=== PATIENT | male | born 1995 | race Caucasian/White ===

== ENCOUNTER 2016-10-02 18:05 | Emergency (ER) | payer MEDICAID, SELFPAY ==
[~2016-10-02] VITALS: Ht 167.6 cm; Wt 81.6 kg
[2016-10-02] MEDS ORDERED: ZOFR4TAB3 PO (19:59)
[2016-10-02] MEDS ORDERED: ONDANSETRON 4 MG ORAL DISINTEGRATING TAB (S0181) PO ONE (20:00)
[2016-10-02 20:06] VITALS: BP 138/84
== END 2016-10-02 20:06 | disposition home or self-care (01) ==
LOC: M ED 19:23
DX: K52.9 Noninfective gastroenteritis and colitis, unspecified (principal); E86.0 Dehydration; R42 Dizziness and giddiness

== ENCOUNTER 2017-12-13 04:57 | Emergency (ER) | payer BC, SELFPAY ==
[2017-12-13] MEDS: NS 1,000 ML IV ×2 (05:30→05:47)
[2017-12-13 05:39] LABS: BASO # 0.1 10^3/uL (0.0-0.2); BASO % 0.5 % (0.0-1.0); EOS # 0.2 10^3/uL (0.0-0.50); EOS % 1.3 % (0.0-3.0); HEMATOCRIT 43.6 % (42.0-52.0); HEMOGLOBIN 15.4 g/dl (13.5-17.5); IMMATURE GRANULOCYTE % 0.4 % (0-3.0); LYMPH # 1.9 10^3/uL (1.5-6.5); LYMPH % 16.1 % (24.0-44.0); MEAN CORPUSCULAR HEMOGLOBIN 32.2 pg (27.0-33.0); MEAN CORPUSCULAR HGB CONC 35.3 g/dl (32.0-36.5); MEAN CORPUSCULAR VOLUME 91.2 fl (80.0-96.0); MONO # 1.9 10^3/uL (0.0-0.8); MONO % 15.4 % (0.0-5.0); NEUTROPHILS % 66.3 % (36.0-66.0); PLATELET COUNT, AUTOMATED 213 10^3/uL (150-450); RED BLOOD COUNT 4.78 10^6/uL (4.30-6.10); WHITE BLOOD COUNT 12.1 10^3/uL (4.0-10.0)
[2017-12-13] MEDS: LORazepam 2 MG/ML VIAL (J2060) IV (05:47)
[2017-12-13 06:05] LABS: ALBUMIN 3.9 GM/DL (3.2-5.2); ALBUMIN/GLOBULIN RATIO 1.08 (1.00-1.93); ALKALINE PHOSPHATASE 65 U/L (45-117); ALT/SGPT 55 U/L (12-78); ANION GAP 13 MEQ/L (8-16); AST/SGOT 39 U/L (7-37); BILIRUBIN,DIRECT 0.3 MG/DL (0.0-0.2); BILIRUBIN,TOTAL 0.8 MG/DL (0.2-1.0); BLOOD UREA NITROGEN 7 MG/DL (7-18); CALCIUM LEVEL 8.5 MG/DL (8.5-10.1); CARBON DIOXIDE LEVEL 25 MEQ/L (21-32); CHLORIDE LEVEL 103 MEQ/L (98-107); CREATININE FOR GFR 0.89 MG/DL (0.70-1.30); GLOMERULAR FILTRATION RATE > 60.0 (>60); GLUCOSE, FASTING 127 MG/DL (70-100); LIPASE 99 U/L (73-393); POTASSIUM SERUM 3.3 MEQ/L (3.5-5.1); SODIUM LEVEL 141 MEQ/L (136-145); TOTAL PROTEIN 7.5 GM/DL (6.4-8.2)
[2017-12-13] MEDS: POTASSIUM CHLORIDE 10 MEQ SR TABLET PO (06:22)
== END 2017-12-13 07:34 | disposition home or self-care (01) ==
LOC: M ED 04:57
DX: K52.9 Noninfective gastroenteritis and colitis, unspecified (principal); E86.0 Dehydration; M43.6 Torticollis; E87.6 Hypokalemia
CPT/HCPCS: J2060

== ENCOUNTER 2017-12-17 19:47 | Emergency (ER) | payer BC ==
[2017-12-17] MEDS: FAMOTIDINE IV BAG 20 MG in APPROPRIATE DILUENT 1 EA IV (20:32)
[2017-12-17] MEDS: methylPREDNISolone INJ 125 MG/2 ML VIAL (J2930) IV (20:32)
[2017-12-17] MEDS: diphenhydrAMINE INJ 50MG/ML VIAL (J1200) IV (20:32)
== END 2017-12-17 21:38 | disposition home or self-care (01) ==
LOC: M ED 19:47
DX: L50.9 Urticaria, unspecified (principal); R51 Headache; Z72.0 Tobacco use
CPT/HCPCS: J1200

== ENCOUNTER 2017-12-23 22:13 | Emergency (ER) | payer BC ==
[2017-12-24 01:39] LABS: ALBUMIN 3.8 GM/DL (3.2-5.2); ALBUMIN/GLOBULIN RATIO 1.15 (1.00-1.93); ALKALINE PHOSPHATASE 73 U/L (45-117); ALT/SGPT 44 U/L (12-78); AST/SGOT 13 U/L (7-37); BILIRUBIN,DIRECT 0.3 MG/DL (0.0-0.2); BILIRUBIN,TOTAL 0.7 MG/DL (0.2-1.0); TOTAL PROTEIN 7.1 GM/DL (6.4-8.2)
== END 2017-12-24 01:46 | disposition home or self-care (01) ==
LOC: M ED 12-24 01:46
DX: B35.4 Tinea corporis (principal); R51 Headache; Z72.0 Tobacco use
CPT/HCPCS: 80076

== ENCOUNTER → 2018-01-13 | Outpatient (REF) | payer BC ==
[2018-01-13 12:01] LABS: HEMATOCRIT 41.4 % (42.0-52.0); HEMOGLOBIN 13.7 g/dl (13.5-17.5); MEAN CORPUSCULAR HGB CONC 33.1 g/dl (32.0-36.5); MEAN CORPUSCULAR VOLUME 96.7 fl (80.0-96.0); PLATELET COUNT, AUTOMATED 398 10^3/uL (150-450); RED BLOOD COUNT 4.28 10^6/uL (4.30-6.10); WHITE BLOOD COUNT 12.6 10^3/uL (4.0-10.0)
[2018-01-13 13:13] LABS: ALBUMIN 3.3 GM/DL (3.2-5.2); ALBUMIN/GLOBULIN RATIO 0.94 (1.00-1.93); ALKALINE PHOSPHATASE 70 U/L (45-117); ALT/SGPT 23 U/L (12-78); ANION GAP 9 MEQ/L (8-16); AST/SGOT 10 U/L (7-37); BILIRUBIN,TOTAL 0.5 MG/DL (0.2-1.0); BLOOD UREA NITROGEN 7 MG/DL (7-18); CALCIUM LEVEL 8.6 MG/DL (8.5-10.1); CARBON DIOXIDE LEVEL 28 MEQ/L (21-32); CHLORIDE LEVEL 106 MEQ/L (98-107); CREATININE FOR GFR 0.69 MG/DL (0.70-1.30); FREE T4 1.24 NG/DL (0.76-1.46); GLOMERULAR FILTRATION RATE > 60.0 (>60); GLUCOSE, FASTING 108 MG/DL (70-100); POTASSIUM SERUM 3.9 MEQ/L (3.5-5.1); SODIUM LEVEL 143 MEQ/L (136-145); TOTAL PROTEIN 6.8 GM/DL (6.4-8.2)
== END ==
LOC: M SFHCPLAZ 08:22
DX: J02.9 Acute pharyngitis, unspecified (principal); F32.9 Major depressive disorder, single episode, unspecified
CPT/HCPCS: 84443

== ENCOUNTER → 2018-01-15 | Outpatient (REF) | payer BC | LOC: M SFHCPLAZ 14:42 | DX: R19.7 Diarrhea, unspecified (principal) | CPT/HCPCS: 87507 ==

== ENCOUNTER → 2018-01-30 | Outpatient (REF) | payer BC ==
[2018-01-30 11:11] LABS: RETIC HEMOGLOBIN EQUIVALENT 35.4 pg (24-36); RETICULOCYTE # 59.8 10^9/L (17-77); RETICULOCYTE % 1.4 % (0.5-1.5)
[2018-01-30 11:35] LABS: FOLATE 10.9 NG/ML (>5.4); VITAMIN B12 LEVEL 417 PG/ML (247-911)
[2018-01-30 11:42] LABS: FERRITIN 51 NG/ML (26-388); IRON (FE) 24 UG/DL (65-175); PERCENT SATURATION 7.5 % (19.7-50.0); TOTAL IRON BINDING CAPACITY 318 UG/DL (250-450)
== END ==
LOC: M SFHCPLAZ 09:38
DX: D64.9 Anemia, unspecified (principal)

== ENCOUNTER → 2018-03-23 | Outpatient (CLI) | payer BC | LOC: M RAD 08:29 | DX: R19.7 Diarrhea, unspecified (principal) | CPT/HCPCS: 76705 ==

== ENCOUNTER 2018-03-30 10:24 | Day surgery (SDC) | payer BC ==
[2018-03-30] MEDS: NS 1,000 ML IV (06:00)
[2018-03-30] MEDS ORDERED: fentaNYL 100 MCG/2 ML INJECTION (J3010) As Ordered (12:02)
[2018-03-30] MEDS ORDERED: LIDOCAINE 2% INJ 100 MG/5 ML SDV (FOR ANES.) As Ordered (12:21)
[2018-03-30] MEDS ORDERED: PROPOFOL 500 MG/50 ML VIAL As Ordered (12:21)
== END 2018-03-30 13:07 | disposition home or self-care (01) ==
LOC: M OPP 10:24
DX: R19.7 Diarrhea, unspecified (principal); D50.9 Iron deficiency anemia, unspecified; K64.8 Other hemorrhoids; R11.2 Nausea with vomiting, unspecified; K22.8 Other specified diseases of esophagus; K29.70 Gastritis, unspecified, without bleeding; R51 Headache; F41.9 Anxiety disorder, unspecified; F17.210 Nicotine dependence, cigarettes, uncomplicated; F12.10 Cannabis abuse, uncomplicated
CPT/HCPCS: 45380

== ENCOUNTER → 2018-06-22 | Outpatient (CLI) | payer BC ==
[~2018-06-22] MED LIST: DIFL200T PO; PEPC1TAB5 PO; PRED20TA PO; ZOFR4TAB14 PO
[2018-06-22 14:43] LABS: BASO # 0.1 10^3/uL (0.0-0.2); BASO % 0.7 % (0.0-1.0); EOS # 0.3 10^3/uL (0.0-0.50); EOS % 3.1 % (0.0-3.0); HEMATOCRIT 41.6 % (42.0-52.0); HEMOGLOBIN 13.7 g/dl (13.5-17.5); LYMPH # 2.1 10^3/uL (1.5-6.5); LYMPH % 26.5 % (24.0-44.0); MEAN CORPUSCULAR HEMOGLOBIN 30.5 pg (27.0-33.0); MEAN CORPUSCULAR HGB CONC 32.9 g/dl (32.0-36.5); MEAN CORPUSCULAR VOLUME 92.7 fl (80.0-96.0); MONO # 0.8 10^3/uL (0.0-0.8); MONO % 9.4 % (0.0-5.0); NEUTROPHILS # 4.8 10^3/uL (1.8-7.7); NEUTROPHILS % 60.1 % (36.0-66.0); PLATELET COUNT, AUTOMATED 287 10^3/uL (150-450); RED BLOOD COUNT 4.49 10^6/uL (4.30-6.10)
[2018-06-22 15:09] LABS: ERYTHROCYTE SEDIMENTATION RATE 4 mm/hr (0-15)
[2018-06-22 15:16] LABS: C REACTIVE PROTEIN QUANTITATIV < 0.30 MG/DL (0.00-0.30); FERRITIN 35 NG/ML (26-388); IRON (FE) 86 UG/DL (65-175); PERCENT SATURATION 26.5 % (19.7-50.0); TOTAL IRON BINDING CAPACITY 325 UG/DL (250-450)
[2018-06-22 15:24] LABS: FOLATE 6.9 NG/ML; VITAMIN B12 LEVEL 523 PG/ML
== END ==
LOC: M LAB 14:15
PROVIDERS: ATTEND Internal Medicine Gastroenterology
DX: D50.9 Iron deficiency anemia, unspecified (principal)

== ENCOUNTER → 2018-07-22 | Outpatient (CLI) | payer BC ==
--- NOTE | 2018-07-23 02:51 | REP ---
Clinical: Right knee pain Technique: AP, lateral, bilateral oblique and sunrise views. Findings: The osseous structures and joint spaces are intact and normal. There is no evidence for acute fracture or dislocation. No joint effusion is appreciated. Surrounding soft tissues are unremarkable. No subcutaneous emphysema or radiodense foreign body. Impression: Normal examination. No acute fracture or dislocation. Electronically Signed by Dontrell Feng MD 07/23/2018 02:42 A
== END ==
LOC: M RAD 12:11
PROVIDERS: ATTEND Physician Assistant
DX: M25.561 Pain in right knee (principal)